=== PATIENT | female | born 1955 | race African-American/Black ===

== ENCOUNTER 2021-09-23 14:10 | Emergency (ER) | payer MEDICAID ==
[~2021-09-23] VITALS: Ht 165.1 cm; Wt 91.0 kg
[~2021-09-23 14:10] MED LIST: CEPH500T MT
[2021-09-23 15:26] LABS: BASOPHILS % 0.3 % (0.0-2.0); EOSINOPHILS % 0.4 % (0.0-5.0); HEMATOCRIT. 34.5 % (36.0-48.0); HEMOGLOBIN. 11.6 g/dL (12.0-16.0); LYMPHOCYTES % 26.3 % (20.0-50.0); MEAN CORPUSCULAR HEMOGLOBIN 30.3 pg (28.0-32.0); MEAN CORPUSCULAR VOLUME 90.1 fL (81.0-99.0); MEAN PLATELET VOLUME 9.4 fl (7.4-10.4); MONOCYTES % 5.5 % (2.0-8.0); NEUTROPHILS % 67.5 % (40.0-76.0); PLATELET 193 x1000/uL (130-400); RED BLOOD CELL COUNT 3.82 mill/uL (4.2-5.4); RED CELL DISTRIBUTION WIDTH 13.8 % (11.6-14.6)
[2021-09-23 15:31] LABS: CHLORIDE 107 mEq/L (98-107)
[2021-09-23 23:00] VITALS: BP 136/71
== END 2021-09-23 23:55 | disposition admitted as inpatient to this hospital (09) ==
LOC: ER 14:10 → CANBEDREQ 22:05 → ER 23:55
DX: R55 Syncope and collapse (principal); R41.0 Disorientation, unspecified; Z20.822 Contact with and (suspected) exposure to COVID-19; F03.90 Unspecified dementia, unspecified severity, without behavioral disturbance, psychotic disturbance, mood disturbance, and anxiety; G40.909 Epilepsy, unspecified, not intractable, without status epilepticus
CPT/HCPCS: 36415; 71045; 80053; 82962; 84484; 85025; 87426; 93005; 99285

== ENCOUNTER 2023-06-21 00:46 | Inpatient (IN) | payer MEDICARE, MEDICAID ==
[~2023-06-21] VITALS: Ht 160 cm; Wt 83.0 kg
[2023-06-21] MEDS ORDERED: LORAZEPAM 2MG/ML CPJ IV ONE (01:15)
[2023-06-21] MEDS ORDERED: LEVETIRACETAM 1000MG PREMIX 100 ML IV ONE (01:15)
[2023-06-21 05:12] LABS: BASOPHILS % 0.1 % (0.0-2.0); EOSINOPHILS % 0.1 % (0.0-5.0); HEMATOCRIT. 34.8 % (36.0-48.0); HEMOGLOBIN. 11.3 g/dL (12.0-16.0); LYMPHOCYTES % 23.5 % (20.0-50.0); MEAN CORPUSCULAR HEMOGLOBIN 29.2 pg (28.0-32.0); MEAN CORPUSCULAR VOLUME 90.3 fL (81.0-99.0); MEAN PLATELET VOLUME 9.3 fl (7.4-10.4); MONOCYTES % 6.2 % (2.0-8.0); NEUTROPHILS % 70.1 % (40.0-76.0); PLATELET 181 x1000/uL (130-400); RED BLOOD CELL COUNT 3.86 mill/uL (4.2-5.4); RED CELL DISTRIBUTION WIDTH 13.5 % (11.6-14.6)
[2023-06-21 05:23] LABS: CHLORIDE 113 mEq/L (98-107)
[2023-06-21] MEDS ORDERED: GUAIFENESIN 200MG/10ML SUGAR FREE UDC PO PRN (06:00)
[2023-06-21] MEDS ORDERED: IPRATROPIUM/ALBUTEROL 0.5-3(2.5)MG/3ML NEB HHN PRN (06:00)
[2023-06-21] MEDS ORDERED: DOCUSATE SODIUM 100MG CAPSULE PO PRN (06:00)
[2023-06-21] MEDS ORDERED: ONDANSETRON HCL 4MG/2ML INJ IV PRN (06:00)
[2023-06-21] MEDS ORDERED: MAGNESIUM/ALUMINUM HYDROXIDE/SIMETHICONE 30ML UDC PO PRN (06:00)
[2023-06-21] MEDS ORDERED: ACETAMINOPHEN 325MG TABLET PO PRN ×2 (06:00)
[2023-06-21] MEDS ORDERED: CLONIDINE 0.1MG TABLET PO PRN (06:00)
[2023-06-21] MEDS: SODIUM CHLORIDE 0.45% 1,000 ML IV SCH ×2 (06:45→22:15)
[2023-06-21 07:20] LABS: CREATINE KINASE 168 IU/L (26-192); CREATINE KINASE MB FRACTION < 1.0 ng/mL (0.5-3.6)
[2023-06-21] MEDS: MEMANTINE HCL 5MG TABLET PO SCH (09:00)
[2023-06-21] MEDS ORDERED: LEVETIRACETAM 500MG TABLET PO SCH (09:00)
[2023-06-21] MEDS ORDERED: LEVETIRACETAM 500MG PREMIX 100 ML IV SCH (09:00)
[2023-06-21 12:00] VITALS: BP 126/67; PULSE 67; RESP 16; TEMP 96.8
[2023-06-21 15:29] VITALS: BP 146/72; PULSE 72; RESP 20; TEMP 97.7
[2023-06-21 16:00] VITALS: BP 141/63; PULSE 57; RESP 15; TEMP 97.1
[2023-06-21 17:35] LABS: CREATINE KINASE MB FRACTION 1.2 ng/mL (0.5-3.6)
[2023-06-21 20:00] VITALS: BP 137/81; PULSE 68; RESP 20; TEMP 99.1
[2023-06-21] MEDS: ATORVASTATIN CALCIUM 40MG TABLET PO SCH (21:00)
[2023-06-21] MEDS: LEVETIRACETAM 1,000 MG in SODIUM CHLORIDE 0.9% 100 ML IV SCH ×2 (22:15→22:25)
[2023-06-21] MEDS: FAMOTIDINE 20MG/2ML VIAL IV SCH (22:16)
[2023-06-21] MEDS: ENOXAPARIN 40MG/0.4ML SYR SUBCUT SCH (22:16)
[2023-06-21 22:23] LABS: HEPATITIS B SURFACE ANTIGEN NEGATIVE
[2023-06-22] VITALS (7 sets, daily range): BP systolic 125–156; BP diastolic 64–83; PULSE 60–84; RESP 16–20; TEMP 96.8–97.5
[2023-06-22 06:51] LABS: HEMATOCRIT 34.2 % (36.0-48.0); HEMOGLOBIN 11.2 g/dL (12.0-16.0); MEAN CORPUSCULAR HEMOGLOBIN 29.1 pg (28.0-32.0); MEAN CORPUSCULAR VOLUME 89.1 fL (81.0-99.0); PLATELET 191 x1000/uL (130-400); RED BLOOD CELL COUNT 3.84 mill/uL (4.2-5.4); RED CELL DISTRIBUTION WIDTH 13.5 % (11.6-14.6)
[2023-06-22 07:23] LABS: CHLORIDE 112 mEq/L (98-107)
[2023-06-22 07:37] LABS: PHOSPHORUS 2.9 mg/dL (2.5-4.9)
[2023-06-22] MEDS: LEVETIRACETAM 1,000 MG in SODIUM CHLORIDE 0.9% 100 ML IV SCH ×2 (11:31→21:54)
[2023-06-22] MEDS: MEMANTINE HCL 5MG TABLET PO SCH (11:32)
[2023-06-22] MEDS: FAMOTIDINE 20MG/2ML VIAL IV SCH ×2 (11:32→21:54)
[2023-06-22] MEDS: SODIUM CHLORIDE 0.45% 1,000 ML IV SCH (15:20)
[2023-06-22] MEDS: ATORVASTATIN CALCIUM 40MG TABLET PO SCH (21:54)
[2023-06-22] MEDS: ENOXAPARIN 40MG/0.4ML SYR SUBCUT SCH (21:54)
[2023-06-23] VITALS: BP 156/81; PULSE 72; RESP 16; TEMP 97.1
[2023-06-23 04:00] VITALS: BP 156/81; PULSE 72; RESP 16; TEMP 97.1
[2023-06-23 08:00] VITALS: BP 139/77; PULSE 71; RESP 18; TEMP 97.9
[2023-06-23] MEDS: MEMANTINE HCL 5MG TABLET PO SCH (08:42)
[2023-06-23] MEDS: FAMOTIDINE 20MG/2ML VIAL IV SCH (08:42)
[2023-06-23] MEDS: LEVETIRACETAM 1,000 MG in SODIUM CHLORIDE 0.9% 100 ML IV SCH (08:59)
[2023-06-23] MEDS: SODIUM CHLORIDE 0.45% 1,000 ML IV SCH (09:01)
[2023-06-23 12:00] VITALS: BP 129/100; PULSE 69; RESP 18; TEMP 97.7
[2023-06-23 12:39] VITALS: BP 129/85; PULSE 69; TEMP 97.7; O2SAT 100
== END 2023-06-23 18:13 | disposition home health service (06) | DRG 101 ==
LOC: ER 00:46 → 8WST 06:48
PROVIDERS: ADMIT Hospitalist; ATTEND Hospitalist
PROC: 4A10X4Z Monitoring of Central Nervous Electrical Activity, External Approach (ICD-10-PCS; principal; 2023-06-22)
DX: G40.409 Other generalized epilepsy and epileptic syndromes, not intractable, without status epilepticus (principal); I67.82 Cerebral ischemia; E11.9 Type 2 diabetes mellitus without complications; E78.00 Pure hypercholesterolemia, unspecified; F03.90 Unspecified dementia, unspecified severity, without behavioral disturbance, psychotic disturbance, mood disturbance, and anxiety; R32 Unspecified urinary incontinence; Z79.2 Long term (current) use of antibiotics
CPT/HCPCS: 36415; 71045; 80048; 80053; 80061; 82542; 82550; 82553; 82962; 83036; 83735; 84100; 84439; 84443; 84484; 85025; 85027; 86803; 87340; 93005; 93970; 97162; 99291; J1650; J1953; J2060; J3490; J7050

== ENCOUNTER 2024-02-21 08:48 | Emergency (ER) | payer MEDICARE, MEDICAID ==
[~2024-02-21] VITALS: Ht 172.7 cm; Wt 90.0 kg
[2024-02-21 08:56] VITALS: O2SAT 98
[2024-02-21 10:17] LABS: BASOPHILS % 0.2 % (0.0-2.0); EOSINOPHILS % 0.3 % (0.0-5.0); HEMATOCRIT. 36.7 % (36.0-48.0); HEMOGLOBIN. 11.5 g/dL (12.0-16.0); LYMPHOCYTES % 40.9 % (20.0-50.0); MEAN CORPUSCULAR HEMOGLOBIN 28.6 pg (28.0-32.0); MEAN CORPUSCULAR HGB CONC 31.4 g/dL (31.0-37.0); MEAN CORPUSCULAR VOLUME 91.1 fL (81.0-99.0); MONOCYTES % 6.7 % (2.0-8.0); NEUTROPHILS % 51.9 % (40.0-76.0); PLATELET 249 x1000/uL (130-400); RED BLOOD CELL COUNT 4.03 mill/uL (4.2-5.4); RED CELL DISTRIBUTION WIDTH 15.7 % (11.6-14.6); WHITE BLOOD COUNT 4.2 x1000/uL (4.5-11.0)
[2024-02-21] MEDS: LEVETIRACETAM 1000MG PREMIX 100 ML IV ONE (10:18)
[2024-02-21 10:31] LABS: ALANINE AMINOTRANSFERASE 18 IU/L (10-49); ALBUMIN 4.2 g/dL (3.2-4.8); ASPARTATE AMINOTRANSFERASE 47 IU/L (<34); BILIRUBIN TOTAL 0.5 mg/dL (0.1-1.0); CALCIUM 8.8 mg/dL (8.7-10.4); CARBON DIOXIDE 26 mEq/L (21-32); CHLORIDE 109 mEq/L (98-107); CREATININE 0.9 mg/dL (0.6-1.0); GLUCOSE 82 mg/dL (70-105); PROTEIN TOTAL 6.6 g/dL (6.0-8.3); SODIUM 140 mEq/L (136-145); UREA NITROGEN BLOOD 11 mg/dL (9-23)
[2024-02-21 10:36] LABS: ETHANOL BLOOD < 10 mg/dL (<10)
[2024-02-21 10:39] LABS: POTASSIUM 6.2 mEq/L (3.5-5.1)
[2024-02-21 11:24] LABS: CLARITY URINE CLOUDY (CLEAR); COLOR URINE YELLOW (YELLOW); GLUCOSE URINE NEGATIVE (NEGATIVE); KETONES URINE NEGATIVE (NEGATIVE); LEUKOCYTE ESTERASE URINE TRACE (NEGATIVE); NITRITE URINE NEGATIVE (NEGATIVE); OCCULT BLOOD URINE NEGATIVE (NEGATIVE); PH URINE 7.5 (4.5-8.0); PROTEIN URINE NEGATIVE (NEGATIVE); SPECIFIC GRAVITY URINE 1.023 (1.005-1.030); UROBILINOGEN URINE 0.2 E.U./dL (0.2-1.0)
[2024-02-21] MEDS: DEXTROSE 50% WATER 50ML SYRINGE IV ONE (11:25)
[2024-02-21 11:34] LABS: CALCIUM 9.1 mg/dL (8.7-10.4); CARBON DIOXIDE 26 mEq/L (21-32); CHLORIDE 111 mEq/L (98-107); CREATININE 0.9 mg/dL (0.6-1.0); GLUCOSE 75 mg/dL (70-105); POTASSIUM 4.6 mEq/L (3.5-5.1); SODIUM 143 mEq/L (136-145); UREA NITROGEN BLOOD 11 mg/dL (9-23)
[2024-02-21 11:37] LABS: BACTERIA URINE 4+; SQUAMOUS EPITHELIAL CELL URINE FEW /lpf (RARE/1+); YEAST URINE NONE SEEN
[2024-02-21 12:15] LABS: *AMPHETAMINES SCREEN URINE NEGATIVE (NEGATIVE); *BARBITURATES SCREEN URINE NEGATIVE (NEGATIVE); *BENZODIAZEPINES SCREEN URINE NEGATIVE (NEGATIVE); *COCAINE SCREEN URINE NEGATIVE (NEGATIVE); CANNABINOID URINE SCREEN NEGATIVE (NEGATIVE); ECSTASY MDMA SCREEN URINE NEGATIVE (NEGATIVE); METHADONE URINE SCREEN Neg (NEGATIVE); OPIATES URINE SCREEN NEGATIVE (NEGATIVE); PHENCYCLIDINE URINE SCREEN NEGATIVE (NEGATIVE)
[2024-02-21 15:14] VITALS: BP 145/69; PULSE 84; RESP 16; TEMP 98.4
== END 2024-02-21 15:41 | disposition short-term general hospital (02) ==
LOC: ER 08:48 → CANBEDREQ 13:21 → ER 15:41
DX: R56.9 Unspecified convulsions (principal); N39.0 Urinary tract infection, site not specified; E16.2 Hypoglycemia, unspecified; E78.00 Pure hypercholesterolemia, unspecified; Z98.890 Other specified postprocedural states
CPT/HCPCS: 80053; 80305; 80048; 81003; 80320; 82962; 85025; 36415; 70450; 96365; 96366; 99285; J1953; G0480

== ENCOUNTER 2024-08-06 15:55 | Emergency (ER) | payer MEDICARE, MEDICAID ==
[~2024-08-06] VITALS: Ht 167.6 cm; Wt 75.0 kg
[2024-08-06 15:53] VITALS: RESP 24
[2024-08-06 15:58] VITALS: BP 0/0; PULSE 80; RESP 12
[2024-08-06] MEDS ORDERED: DEXTROSE 50% WATER 50ML SYRINGE IV ONE ×2 (16:04→16:05)
[2024-08-06] MEDS ORDERED: NOREPINEPHRINE 8MG/250ML PMX 250 ML IV ONE (16:06)
[2024-08-13] MEDS ORDERED: DEXTROSE 50% WATER 50ML SYRINGE IV ONE (10:00)
[2024-08-13] MEDS ORDERED: NOREPINEPHRINE 8MG/250ML PMX 250 ML IV ONE (10:00)
== END 2024-08-06 16:20 ==
LOC: ER 15:55
DX: I46.9 Cardiac arrest, cause unspecified (principal); E78.00 Pure hypercholesterolemia, unspecified; Z98.890 Other specified postprocedural states
CPT/HCPCS: 36556; 82962; 92950 ×2; 94003; 99291; J3490